=== PATIENT | male | born 1990 | race Two or more races ===

== ENCOUNTER 2018-04-08 23:26 | Emergency (ER) | payer OTHER ==
[~2018-04-08] VITALS: Ht 180.3 cm; Wt 110.7 kg
[2018-04-08] MEDS ORDERED: IBUPROFEN600 MG ORAL (23:36)
[2018-04-09 00:14] VITALS: BP 136/76
[2018-04-09] MEDS ORDERED: Ketorolac 60mg Inj IM ONE (00:30)
[2018-04-09] MEDS ORDERED: NAPROXEN500 M2 ORAL (00:35)
--- NOTE | 2018-04-09 00:35 | Emergency Room Report ---
History of Present Illness General Chief Complaint: Lower Back Pain or Injury Source: Patient Present Illness HPI Is a 27-year-old male with no past medical history. He presents with chief point of lower back pain. This occurred at work over a week ago. He would did some lifting and twisting motion and felt pain in his back. 2 days later was more severe he went to [facility]. He was put on Flexeril, Motrin and Mcroberts. He was off work for a few days and came back today. He still has some pain so was sent here as a Workmen's Comp. Pain is 7 out of 10. Worse with movement. Better with rest. Denies any other complaint. No incontinence of bowel or urine. No direct trauma. Allergies: Coded Allergies: No Known Allergies (Unverified , 04/08/18) Patient History Past Medical History: see triage record, old chart reviewed Past Surgical History: none Pertinent Family History: none Social History: Denies: smoking Immunizations: other Reviewed Nursing Documentation: PMH: Agreed; PSxH: Agreed Nursing Documentation-PM Past Medical History: No Stated History Review of Systems Eye: Denies: eye pain, blurred vision ENT: Denies: ear pain, nose congestion, throat swelling Respiratory: Denies: cough, shortness of breath Cardiovascular: Denies: chest pain, palpitations Gastrointestinal: Denies: abdominal pain, diarrhea, nausea, vomiting Musculoskeletal: Reports: back pain; Denies: joint pain Skin: Denies: rash Neurological: Denies: headache, numbness Endocrine: Denies: increased thirst, increased urine Hematologic/Lymphatic: Denies: easy bruising All Other Systems: negative except mentioned in HPI Physical Exam Vital Signs Date Time Temp Pulse Resp B/P (MAP) Pulse Ox O2 Delivery O2 Flow Rate FiO2 04/08/18 23:31 98.2 78 16 136/76 97 Room Air vitals normal Sp02 EP Interpretation: reviewed, normal General Appearance: well appearing, no apparent distress, alert Head: normocephalic, atraumatic Eyes: bilateral eye PERRL, bilateral eye EOMI ENT: hearing grossly normal, normal pharynx Neck: full range of motion, supple, no meningismus Respiratory: chest non-tender, lungs clear, normal breath sounds Cardiovascular #1: regular rate, rhythm, no murmur Gastrointestinal: normal bowel sounds, non tender, no mass, no organomegaly, no bruit, non-distended Musculoskeletal: back normal, gait/station normal, normal range of motion, tender - Left lateral lowerLumbar paraspinous tenderness. Neurologic: alert, oriented x3 Psychiatric: mood/affect normal Skin: warm/dry Medical Decision Making Diagnostic Impression: Primary Impression: Strain of lumbar paraspinal muscle Qualified Codes: S39.012A - Strain of muscle, fascia and tendon of lower back , initial encounter ER Course Patient with a strain of the lower lumbar area. Based on mechanism on likely to have fracture or dislocation. We'll discharge home. Last Vital Signs Date Time Temp Pulse Resp B/P (MAP) Pulse Ox O2 Delivery O2 Flow Rate FiO2 04/09/18 00:14 98.2 78 16 136/76 97 Room Air Status: unchanged Disposition: HOME, SELF-CARE Condition: Stable Scripts Naproxen* (NAPROXEN*) 500 Mg Tablet 500 MG ORAL TWICE A DAY, #30 TAB Prov: Hunter Rivera MD 04/09/18 Patient Instructions: Lumbosacral Strain Additional Instructions: Follow-up with Worker's Comp. in 2-3 days. Return if worse. Hunter Rivera MD Apr 09, 2018 00:35
[2018-04-09 00:39] VITALS: BP 110/75
== END 2018-04-09 | disposition home or self-care (01) ==
LOC: EMR 04-09 00:30
DX: S39.012A Strain of muscle, fascia and tendon of lower back, initial encounter (principal); X50.0XXA Overexertion from strenuous movement or load, initial encounter; Y92.59 Other trade areas as the place of occurrence of the external cause; Y99.0 Civilian activity done for income or pay
CPT/HCPCS: 96372; 99283